=== PATIENT | female | born 1935 | race Caucasian/White ===

== ENCOUNTER 2023-11-13 10:25 | Outpatient (RCR) | payer OTHER, SELFPAY ==
[2023-11-13 10:41] VITALS: BP 132/68
[2023-11-13] MEDS: PROLIA 60 MG SC (10:49)
== END 2023-11-18 09:13 | disposition home or self-care (01) ==
LOC: OID 10:25
PROVIDERS: ATTENDING PHYSICIAN Internal Medicine; FAMILY PHYSICIAN Family Medicine
DX: M81.0 Age-related osteoporosis without current pathological fracture (principal)
CPT/HCPCS: 96372; J0897

== ENCOUNTER → 2024-01-01 14:27 | Outpatient (REF) | payer OTHER, SELFPAY | LOC: RAD 14:27 | PROVIDERS: ATTENDING PHYSICIAN Podiatrist Primary Podiatric Medicine; FAMILY PHYSICIAN Family Medicine | DX: L03.032 Cellulitis of left toe (principal) | CPT/HCPCS: 73630 ==

== ENCOUNTER → 2024-02-28 10:04 | Outpatient (REF) | payer OTHER, SELFPAY ==
[2024-02-28 11:09] LABS: % Basophils 0.8 % (0-2); % Immature Granulocytes 0.1 % (0-0.5); % Lymphocytes 57.1 % (20.5-51.1); % Monocytes 6.4 % (1.7-9.3); % Neutrophils 33.6 % (42.2-75.2); Absolute Basophils 0.1 10^3/uL (0-0.2); Absolute Eosinophils 0.2 10^3/uL (0-0.7); Absolute Lymphocytes 5.2 10^3/uL (1.2-3.4); Absolute Monocytes 0.6 10^3/uL (0.1-0.6); Absolute Neutrophils 3.1 10^3/uL (1.4-6.5); Hematocrit 43.9 % (37.0-47.0); Hemoglobin 14.3 g/dL (12.0-16.0); Mean Corp Hgb Conc. 32.6 g/dL (33.0-37.0); Mean Corpuscular Hgb 32.3 pg (27.0-31.0); Mean Corpuscular Volume 99.1 fL (81.0-99.0); Mean Platelet Volume 9.6 fL (7.4-10.4); Nucleated Red Blood Cells % 0 %; Platelet Count 369 10^3/uL (130-400); Red Blood Cell Count 4.43 10^6/uL (4.20-5.40); Red Cell Dist. Width 12.7 % (11.5-14.5); White Blood Cell Count 9.1 10^3/uL (4.8-10.8)
[2024-02-28 11:27] LABS: ALT (SGPT) 19 U/L (0-35); AST (SGOT) 30 U/L (14-36); Alkaline Phosphatase 53 U/L (38-126); Blood Urea Nitrogen 12 mg/dl (7-17); Calcium 9.4 mg/dl (8.4-10.2); Carbon Dioxide 28 mmol/L (22-30); Chloride 106 mmol/L (98-107); Glucose 109 mg/dl (70-99); HDL Cholesterol 78 mg/dl; LDL Cholesterol, Calculated 63 mg/dl; Potassium 4.5 mmol/L (3.5-5.1); Sodium 141 mmol/L (135-145); Total Bilirubin 0.8 mg/dl (0.2-1.3); Total Cholesterol 160 mg/dl (50-199); Total Protein 6.3 g/dl (6.3-8.2); Triglyceride 98 mg/dl (10-149); Very Low Density Lipoprotein 19 mg/dl (0-30); eGFR > 60.00
[2024-02-28 12:57] LABS: Glycohemoglobin (HgbA1c) 5.4 % (4.0-5.6)
== END ==
LOC: OLABPV 10:04
PROVIDERS: ATTENDING PHYSICIAN Family Medicine
DX: R73.03 Prediabetes (principal); E78.2 Mixed hyperlipidemia; Z85.820 Personal history of malignant melanoma of skin; Z13.29 Encounter for screening for other suspected endocrine disorder; R53.83 Other fatigue
CPT/HCPCS: 36415; 80053; 80061; 83036; 84443; 85025

== ENCOUNTER → 2024-05-13 13:23 | Outpatient (REF) | payer OTHER, SELFPAY ==
[2024-05-13 15:09] LABS: ALT (SGPT) 20 U/L (0-35); AST (SGOT) 32 U/L (14-36); Albumin 4.3 g/dl (3.5-5.0); Alkaline Phosphatase 52 U/L (38-126); Blood Urea Nitrogen 14 mg/dl (7-17); Calcium 10.3 mg/dl (8.4-10.2); Carbon Dioxide 27 mmol/L (22-30); Chloride 103 mmol/L (98-107); Glucose 107 mg/dl (70-99); Potassium 4.7 mmol/L (3.5-5.1); Sodium 143 mmol/L (135-145); Total Bilirubin 0.7 mg/dl (0.2-1.3); Total Protein 6.6 g/dl (6.3-8.2); eGFR > 60.00
== END ==
LOC: OLABPV 13:23
PROVIDERS: ATTENDING PHYSICIAN Family Medicine
DX: R73.03 Prediabetes (principal)
CPT/HCPCS: 36415; 80053

== ENCOUNTER 2024-05-21 09:45 | Outpatient (RCR) | payer OTHER, SELFPAY ==
[2024-05-21 10:28] VITALS: BP 128/62
[2024-05-21] MEDS: PROLIA 60 MG SC (10:35)
== END 2024-05-22 09:15 | disposition home or self-care (01) ==
LOC: OID 09:45
PROVIDERS: ATTENDING PHYSICIAN Internal Medicine
DX: M81.0 Age-related osteoporosis without current pathological fracture (principal)
CPT/HCPCS: 96372; J0897

== ENCOUNTER → 2024-08-18 09:56 | Outpatient (REF) | payer OTHER, SELFPAY ==
[2024-08-18 11:13] LABS: HDL Cholesterol 89 mg/dl; LDL Cholesterol, Calculated 45 mg/dl; Total Cholesterol 154 mg/dl (50-199); Triglyceride 103 mg/dl (10-149); Very Low Density Lipoprotein 20 mg/dl (0-30)
[2024-08-18 11:42] LABS: % Basophils 0.6 % (0-2); % Eosinophils 1.7 % (0-6); % Immature Granulocytes 0.3 % (0-0.5); % Lymphocytes 62.4 % (20.5-51.1); % Monocytes 7.2 % (1.7-9.3); % Neutrophils 27.8 % (42.2-75.2); Absolute Basophils 0.1 10^3/uL (0-0.2); Absolute Eosinophils 0.2 10^3/uL (0-0.7); Absolute Lymphocytes 6.7 10^3/uL (1.2-3.4); Absolute Monocytes 0.8 10^3/uL (0.1-0.6); Hemoglobin 14.9 g/dL (12.0-16.0); Mean Corp Hgb Conc. 32.4 g/dL (33.0-37.0); Mean Corpuscular Hgb 32.8 pg (27.0-31.0); Mean Corpuscular Volume 101.3 fL (81.0-99.0); Mean Platelet Volume 9.4 fL (7.4-10.4); Nucleated Red Blood Cells % 0 %; Platelet Count 389 10^3/uL (130-400); Red Blood Cell Count 4.54 10^6/uL (4.20-5.40); Red Cell Dist. Width 13.3 % (11.5-14.5); White Blood Cell Count 10.7 10^3/uL (4.8-10.8)
[2024-08-18 12:08] LABS: Glycohemoglobin (HgbA1c) 5.4 % (4.0-5.6)
== END ==
LOC: OLABPV 09:56
PROVIDERS: ATTENDING PHYSICIAN Family Medicine
DX: R73.03 Prediabetes (principal); E78.2 Mixed hyperlipidemia; Z85.820 Personal history of malignant melanoma of skin; R53.83 Other fatigue
CPT/HCPCS: 36415; 80061; 83036; 85025

== ENCOUNTER → 2024-11-13 09:36 | Outpatient (REF) | payer OTHER, SELFPAY ==
[2024-11-13 12:16] LABS: ALT (SGPT) 21 U/L (0-35); AST (SGOT) 28 U/L (14-36); Albumin 4.1 g/dl (3.5-5.0); Alkaline Phosphatase 59 U/L (38-126); Blood Urea Nitrogen 12 mg/dl (7-17); Calcium 9.8 mg/dl (8.4-10.2); Carbon Dioxide 26 mmol/L (22-30); Chloride 105 mmol/L (98-107); Glucose 132 mg/dl (70-99); Potassium 4.5 mmol/L (3.5-5.1); Sodium 138 mmol/L (135-145); Total Bilirubin 0.9 mg/dl (0.2-1.3); Total Protein 6.4 g/dl (6.3-8.2); eGFR > 60.00
== END ==
LOC: OLABPV 09:36
PROVIDERS: ATTENDING PHYSICIAN Family Medicine
DX: M81.0 Age-related osteoporosis without current pathological fracture (principal)
CPT/HCPCS: 36415; 80053

== ENCOUNTER 2024-11-19 09:41 | Outpatient (RCR) | payer OTHER, SELFPAY ==
[2024-11-19 10:50] VITALS: BP 139/68
[2024-11-19] MEDS: PROLIA 60 MG SC (10:56)
== END 2024-11-19 13:28 | disposition home or self-care (01) ==
LOC: OID 09:41
PROVIDERS: ATTENDING PHYSICIAN Family Medicine
DX: M81.0 Age-related osteoporosis without current pathological fracture (principal)
CPT/HCPCS: 96372; J0897